=== PATIENT | male | born 1965 | race African-American/Black ===

== ENCOUNTER 2017-02-18 11:50 | Emergency (ER) | payer SELFPAY ==
[~2017-02-18] VITALS: Ht 188 cm; Wt 100.0 kg
[2017-02-18 11:51] VITALS: BP 123/87
== END 2017-02-18 14:03 | disposition left against medical advice (07) ==
LOC: ER 13:14
DX: R30.9 Painful micturition, unspecified (principal); Z53.21 Procedure and treatment not carried out due to patient leaving prior to being seen by health care provider

== ENCOUNTER 2017-02-24 06:31 | Emergency (ER) | payer MEDICAID ==
[~2017-02-24] VITALS: Ht 188 cm; Wt 100.0 kg
[2017-02-24] MEDS ORDERED: CEFTRIAXONE SODIUM 250 MG/VIAL IM ONE (08:00)
[2017-02-24] MEDS ORDERED: AZITHROMYCIN 500 MG TABLET PO ONE (08:00)
[2017-02-24] MEDS ORDERED: LIDOCAINE HCL 1% 20ML VIAL (Pyxis) INJ INFIL ONE (08:30)
[2017-02-24 08:50] VITALS: BP 132/86
[2017-02-26 04:17] LABS: CHLAMYDIA TRACHOMATIS NAA Negative (Negative); NEISSERIA GONORRHOEAE NAA Negative (Negative)
== END 2017-02-24 08:52 | disposition home or self-care (01) ==
LOC: ER 07:14
DX: N48.89 Other specified disorders of penis (principal); J45.909 Unspecified asthma, uncomplicated; F12.10 Cannabis abuse, uncomplicated
CPT/HCPCS: 87491; 87591; 96372; 99284; J0696; J3490

== ENCOUNTER 2023-01-21 13:05 | Emergency (ER) | payer MEDICAID, OTHER | END 2023-01-21 18:56 | disposition left against medical advice (07) | LOC: ER 13:05 | DX: Z53.21 Procedure and treatment not carried out due to patient leaving prior to being seen by health care provider (principal) ==